=== PATIENT | male | born 1965 | race Caucasian/White ===

== ENCOUNTER 2016-06-21 08:32 | Emergency (ER) | payer MEDICAID ==
[~2016-06-21] VITALS: Ht 160 cm; Wt 63.3 kg
[2016-06-21 08:48] VITALS: BP 138/87
== END 2016-06-21 14:24 | disposition home or self-care (01) ==
LOC: ER 10:08
DX: S99.921A Unspecified injury of right foot, initial encounter (principal); L08.89 Other specified local infections of the skin and subcutaneous tissue; F17.200 Nicotine dependence, unspecified, uncomplicated; X58.XXXA Exposure to other specified factors, initial encounter; Y93.89 Activity, other specified; Y99.8 Other external cause status; Y92.89 Other specified places as the place of occurrence of the external cause
CPT/HCPCS: 73630; 99284

== ENCOUNTER 2016-11-13 08:34 | Emergency (ER) | payer MEDICAID ==
[~2016-11-13] VITALS: Ht 162.6 cm; Wt 61.0 kg
[2016-11-13 11:41] VITALS: BP 132/81
[2016-11-13] MEDS ORDERED: LIDOCAINE HCL 1% 20ML VIAL (Pyxis) INJ MC ONE (11:45)
[2016-11-13] MEDS ORDERED: TETANUS, DIPHTHERIA, PERTUSSIS VAC/PF 0.5ML (>7YR OLD) IM ONE (11:45)
== END 2016-11-13 13:06 | disposition home or self-care (01) ==
LOC: ER 08:34
DX: J86.9 Pyothorax without fistula (principal); F17.200 Nicotine dependence, unspecified, uncomplicated; F12.10 Cannabis abuse, uncomplicated
CPT/HCPCS: 10060; 90471; 90715; 99283; J3490; Z7610

== ENCOUNTER 2019-05-13 08:24 | Emergency (ER) | payer MEDICAID ==
[~2019-05-13] VITALS: Ht 162.6 cm; Wt 61.0 kg
[2019-05-13 09:20] VITALS: BP 116/88
== END 2019-05-13 09:21 | disposition home or self-care (01) ==
LOC: ER 08:24
DX: J06.9 Acute upper respiratory infection, unspecified (principal); F12.10 Cannabis abuse, uncomplicated
CPT/HCPCS: 99282

== ENCOUNTER 2019-06-26 08:25 | Emergency (ER) | payer MEDICAID ==
[~2019-06-26] VITALS: Ht 162.6 cm; Wt 61.0 kg
[2019-06-26] MEDS ORDERED: IBUPROFEN 800MG TABLET PO ONE (09:00)
[2019-06-26 09:10] VITALS: BP 128/81
== END 2019-06-26 09:12 | disposition home or self-care (01) ==
LOC: ER 08:25
DX: K02.9 Dental caries, unspecified (principal); F12.10 Cannabis abuse, uncomplicated
CPT/HCPCS: 99283

== ENCOUNTER 2021-02-23 08:14 | Emergency (ER) | payer MEDICAID ==
[~2021-02-23] VITALS: Ht 157.5 cm; Wt 62.9 kg
[2021-02-23 08:22] VITALS: BP 133/96
== END 2021-02-23 12:12 | disposition left against medical advice (07) ==
LOC: ER 08:14
DX: Z53.21 Procedure and treatment not carried out due to patient leaving prior to being seen by health care provider (principal); I49.9 Cardiac arrhythmia, unspecified
CPT/HCPCS: 93005

== ENCOUNTER 2021-10-01 08:13 | Emergency (ER) | payer MEDICAID, OTHER ==
[~2021-10-01] VITALS: Ht 167.6 cm; Wt 88.0 kg
[2021-10-01 08:25] VITALS: BP 133/80
[2021-10-01 10:09] LABS: BASOPHILS % 0.2 % (0.0-2.0); HEMATOCRIT. 46.6 % (42.0-52.0); HEMOGLOBIN. 15.9 g/dL (14.0-18.0); MEAN CORPUSCULAR HEMOGLOBIN 32.2 pg (28.0-32.0); MEAN CORPUSCULAR VOLUME 94.6 fL (80.0-94.0); MEAN PLATELET VOLUME 7.2 fl (7.4-10.4); MONOCYTES % 4.8 % (2.0-8.0); PLATELET 210 x1000/uL (130-400); RED BLOOD CELL COUNT 4.93 mill/uL (4.7-6.1); RED CELL DISTRIBUTION WIDTH 13.6 % (11.6-14.6)
[2021-10-01 10:11] LABS: CHLORIDE 105 mEq/L (98-107)
[2021-10-01] MEDS ORDERED: FAMO-135 MT (11:36)
== END 2021-10-01 11:04 | disposition home or self-care (01) ==
LOC: ER 08:13
DX: K52.9 Noninfective gastroenteritis and colitis, unspecified (principal); R03.0 Elevated blood-pressure reading, without diagnosis of hypertension
CPT/HCPCS: 36415; 80053; 85025; 99283

== ENCOUNTER 2022-01-04 08:09 | Emergency (ER) | payer MEDICAID, OTHER ==
[~2022-01-04] VITALS: Ht 165.1 cm; Wt 66.0 kg
[~2022-01-04 08:09] MED LIST: FAMO-135 MT
[2022-01-04 08:16] VITALS: BP 146/89
[2022-01-04] MEDS ORDERED: NAPR-1176 PO (10:12)
== END 2022-01-04 10:42 | disposition home or self-care (01) ==
LOC: ER 08:09
DX: S62.635A Displaced fracture of distal phalanx of left ring finger, initial encounter for closed fracture (principal); X58.XXXA Exposure to other specified factors, initial encounter; Y93.89 Activity, other specified; Y92.89 Other specified places as the place of occurrence of the external cause; Y99.8 Other external cause status
CPT/HCPCS: 29125; 73130; 99283

== ENCOUNTER 2022-02-18 08:35 | Emergency (ER) | payer MEDICAID, OTHER ==
[~2022-02-18] VITALS: Ht 167.6 cm; Wt 79.0 kg
[~2022-02-18 08:35] MED LIST changes: +NAPR-1176 PO
[2022-02-18 08:41] VITALS: BP 133/81
[2022-02-18] MEDS ORDERED: LIDOCAINE HCL/PF 1% 10 MG/ML 5ML VIAL INFIL ONE (10:45)
[2022-02-18] MEDS ORDERED: TETANUS, DIPHTHERIA, PERTUSSIS VAC/PF 0.5ML (>10YR OLD) IM ONE (10:45)
== END 2022-02-18 11:51 | disposition left against medical advice (07) ==
LOC: ER 08:35
DX: S41.112A Laceration without foreign body of left upper arm, initial encounter (principal); W01.0XXA Fall on same level from slipping, tripping and stumbling without subsequent striking against object, initial encounter; Y93.89 Activity, other specified; Y92.89 Other specified places as the place of occurrence of the external cause
CPT/HCPCS: 99281; J3490; Z7610

== ENCOUNTER 2022-02-25 08:29 | Emergency (ER) | payer MEDICAID, OTHER ==
[~2022-02-25] VITALS: Ht 162.6 cm; Wt 70.0 kg
[2022-02-25 08:31] VITALS: BP 131/84
== END 2022-02-25 09:17 | disposition home or self-care (01) ==
LOC: ER 08:29
DX: Z48.02 Encounter for removal of sutures (principal)
CPT/HCPCS: 99281

== ENCOUNTER 2023-01-29 09:10 | Emergency (ER) | payer MEDICAID ==
[~2023-01-29] VITALS: Ht 160 cm; Wt 70.0 kg
[2023-01-29 09:30] VITALS: O2SAT 99
[2023-01-29 10:13] LABS: BASOPHILS % 0.8 % (0.0-2.0); EOSINOPHILS % 0.2 % (0.0-5.0); HEMATOCRIT. 48.6 % (42.0-52.0); HEMOGLOBIN. 16.7 g/dL (14.0-18.0); LYMPHOCYTES % 30.7 % (20.0-50.0); MEAN CORPUSCULAR HEMOGLOBIN 32.5 pg (28.0-32.0); MEAN CORPUSCULAR HGB CONC 34.4 g/dL (31.0-37.0); MEAN CORPUSCULAR VOLUME 94.6 fL (80.0-94.0); MEAN PLATELET VOLUME 6.8 fl (7.4-10.4); MONOCYTES % 12.2 % (2.0-8.0); NEUTROPHILS % 56.1 % (40.0-76.0); PLATELET 187 x1000/uL (130-400); RED BLOOD CELL COUNT 5.14 mill/uL (4.7-6.1); RED CELL DISTRIBUTION WIDTH 13.1 % (11.6-14.6); WHITE BLOOD COUNT 4.8 x1000/uL (4.5-11.0)
[2023-01-29] MEDS ORDERED: ACETAMINOPHEN 325MG TABLET PO ONE (10:30)
[2023-01-29] MEDS ORDERED: ONDANSETRON 4MG ODT PO ONE (10:30)
[2023-01-29] MEDS ORDERED: DIPHENOXYLATE/ATROPINE 2.5/0.025MG TABLET PO ONE (10:30)
[2023-01-29 10:37] LABS: CHLORIDE 103 mEq/L (98-107); INDEX HEMOLYSI 1 (1-3); INDEX ICTERIC 1 (1-4); INDEX LIPEMIC 1 (1-3); POTASSIUM 4.1 mEq/L (3.5-5.1); SODIUM 135 mEq/L (136-145)
[2023-01-29 10:44] LABS: ALANINE AMINOTRANSFERASE 65 IU/L (13-61); ASPARTATE AMINOTRANSFERASE 84 IU/L (15-37); BILIRUBIN TOTAL 0.4 mg/dL (0.1-1.0); CALCIUM 9.1 mg/dL (8.5-10.1); CARBON DIOXIDE 27 mEq/L (21-32); CREATININE 0.7 mg/dL (0.6-1.3); GLUCOSE 99 mg/dL (70-105); PROTEIN TOTAL 8.2 g/dL (6.0-8.3); UREA NITROGEN BLOOD 8 mg/dL (7-21)
[2023-01-29] MEDS ORDERED: ONDA4TAB50 MT (12:16)
[2023-01-29] MEDS ORDERED: AZIT250T12 MT (12:16)
[2023-01-29] MEDS ORDERED: DEXT30SU17 MT (12:16)
[2023-01-29] MEDS ORDERED: TOPUD MT (12:16)
[2023-01-29 12:21] LABS: CLARITY URINE CLEAR (CLEAR); COLOR URINE DARK YELLOW (YELLOW); GLUCOSE URINE NEGATIVE (NEGATIVE); KETONES URINE NEGATIVE (NEGATIVE); LEUKOCYTE ESTERASE URINE NEGATIVE (NEGATIVE); NITRITE URINE NEGATIVE (NEGATIVE); OCCULT BLOOD URINE NEGATIVE (NEGATIVE); PH URINE 5.5 (4.5-8.0); PROTEIN URINE NEGATIVE (NEGATIVE); SPECIFIC GRAVITY URINE 1.024 (1.005-1.030); UROBILINOGEN URINE 0.2 E.U./dL (0.2-1.0)
[2023-01-29 12:28] VITALS: BP 152/78; PULSE 88; RESP 18; TEMP 98.7
== END 2023-01-29 12:45 | disposition home or self-care (01) ==
LOC: ER 09:10
DX: U07.1 COVID-19 (principal); F12.10 Cannabis abuse, uncomplicated
CPT/HCPCS: 99284; 71045; 87426; 80053; 81003; 85025; 36415; Q0162; C9803

== ENCOUNTER 2024-04-05 08:55 | Emergency (ER) | payer MEDICAID ==
[~2024-04-05] VITALS: Ht 162.6 cm; Wt 61.5 kg
[~2024-04-05 08:55] MED LIST changes: +AZIT250T12 MT; +DEXT30SU17 MT; +ONDA4TAB50 MT; +TOPUD MT
[2024-04-05 09:05] VITALS: O2SAT 98
[2024-04-05] MEDS ORDERED: GUAI-453 MT (11:08)
[2024-04-05] MEDS: IBUPROFEN 400MG TABLET PO ONE (11:12)
[2024-04-05 11:17] VITALS: BP 100/58; PULSE 87; RESP 16; TEMP 36.94740; O2SAT 98
== END 2024-04-05 11:16 | disposition home or self-care (01) ==
LOC: ER 08:55
DX: B34.9 Viral infection, unspecified (principal); F12.10 Cannabis abuse, uncomplicated
CPT/HCPCS: 99282

== ENCOUNTER 2024-08-31 08:20 | Emergency (ER) | payer MEDICAID, OTHER ==
[~2024-08-31] VITALS: Ht 160 cm; Wt 58.0 kg
[~2024-08-31 08:20] MED LIST changes: +GUAI-453 MT
[2024-08-31 08:41] VITALS: O2SAT 98
[2024-08-31] MEDS: ACETAMINOPHEN 325MG TABLET PO ONE (11:58)
[2024-08-31] MEDS: IBUPROFEN 400MG TABLET PO ONE (11:58)
[2024-08-31] MEDS: LIDOCAINE 5% PATCH TOP SCH (11:59)
[2024-08-31 13:51] LABS: BASOPHILS % 0.9 % (0.0-2.0); EOSINOPHILS % 0.3 % (0.0-5.0); HEMATOCRIT. 47.3 % (42.0-52.0); LYMPHOCYTES % 39.2 % (20.0-50.0); MEAN CORPUSCULAR HEMOGLOBIN 32.1 pg (28.0-32.0); MEAN CORPUSCULAR HGB CONC 33.8 g/dL (31.0-37.0); MEAN CORPUSCULAR VOLUME 95.1 fL (80.0-94.0); MEAN PLATELET VOLUME 7.1 fl (7.4-10.4); NEUTROPHILS % 46.6 % (40.0-76.0); PLATELET 189 x1000/uL (130-400); RED BLOOD CELL COUNT 4.98 mill/uL (4.7-6.1); RED CELL DISTRIBUTION WIDTH 13.6 % (11.6-14.6); WHITE BLOOD COUNT 4.4 x1000/uL (4.5-11.0)
[2024-08-31 13:58] LABS: CHLORIDE 103 mEq/L (98-107); POTASSIUM 4.4 mEq/L (3.5-5.1); SODIUM 139 mEq/L (136-145)
[2024-08-31 13:59] LABS: CARBON DIOXIDE 27 mEq/L (21-32)
[2024-08-31 14:00] LABS: CALCIUM 9.4 mg/dL (8.7-10.4)
[2024-08-31 14:04] LABS: CREATININE 0.7 mg/dL (0.6-1.3); GLUCOSE 110 mg/dL (70-105)
[2024-08-31 14:05] LABS: UREA NITROGEN BLOOD 7 mg/dL (9-23)
[2024-08-31 14:06] LABS: ALANINE AMINOTRANSFERASE 46 IU/L (10-49); ALBUMIN 4.4 g/dL (3.2-4.8); ASPARTATE AMINOTRANSFERASE 54 IU/L (<34)
[2024-08-31 14:07] LABS: BILIRUBIN DIRECT 0.2 mg/dL (<=3.0); BILIRUBIN TOTAL 0.6 mg/dL (0.1-1.0); PROTEIN TOTAL 7.4 g/dL (6.0-8.3)
[2024-08-31 14:22] LABS: TROPONIN I HIGH SENSITIVITY < 4 ng/L (3.0-53)
[2024-08-31 14:30] VITALS: BP 148/97; PULSE 71; RESP 16; TEMP 36.8; O2SAT 98
== END 2024-08-31 15:15 | disposition home or self-care (01) ==
LOC: ER 08:20 → EDBEDREQ 13:21 → ER 15:15
DX: R07.81 Pleurodynia (principal); F12.90 Cannabis use, unspecified, uncomplicated; R94.31 Abnormal electrocardiogram [ECG] [EKG]; Z79.899 Other long term (current) drug therapy
CPT/HCPCS: 36415; 71101; 80048; 80076; 83880; 84484; 85025; 93005; 99285